=== PATIENT | female | born 1990 ===

== ENCOUNTER 2020-04-27 22:23 | Emergency (ER) | payer OTHER ==
[~2020-04-27] VITALS: Ht 165.1 cm; Wt 77.0 kg
[2020-04-27 22:46] LABS: BASOPHILS # (AUTO) 0.04 x10^3/uL (0-0.1); BASOPHILS % (AUTO) 1 % (0-1); EOSINOPHILS # (AUTO) 0.08 x10^3/uL (0-0.4); EOSINOPHILS % (AUTO) 1 % (1-7); LYMPHOCYTES # (AUTO) 2.81 x10^3/uL (1-3.4); LYMPHOCYTES % (AUTO) 36 % (22-44); MD NO; MEAN CORPUSCULAR HEMOGLOBIN 24.3 pg (27.0-34.8); MEAN CORPUSCULAR VOLUME 75.7 fL (80-100); MEAN PLATELET VOLUME 9.2 fL (7.4-10.4); MONOCYTES # (AUTO) 0.59 x10^3/uL (0.2-0.8); MONOCYTES % (AUTO) 8 % (2-9); NEUTROPHILS # (AUTO) 4.27 x10^3/uL (1.8-6.8); NEUTROPHILS % (AUTO) 55 % (42-75); PLATELET COUNT 364 x10^3/uL (130-400); RED CELL DISTRIBUTION WIDTH 15.9 % (9.6-15.2)
--- NOTE | 2020-04-27 22:46 | NUR ---
PT BIB [facility] on a legal 2000 for SI. pt states she has been feeling increasingly depressed over the past few weeks and now she is having thoughts about suicide. states she doesnt have a specific plan but is thinking about taking pills to OD or crashing her car "or something like that." no hx SA but she has been off of her meds for 1 year. was taking lexapro and another psych drug. pt admit to meth use. last use yesterday. pt tearful and anxious, but cooperative. All belongings in 2 bags, placed in locker. Sitter at hallways for frequesnt checks.
[2020-04-27 22:53] LABS: AMPHETAMINE SCREEN, URINE Positive (Negative); BARBITURATE SCREEN, URINE Negative (Negative); BENZODIAZEPINE SCREEN, URINE Negative (Negative); CANNABINOID SCREEN, URINE Negative (Negative); COCAINE SCREEN, URINE Negative (Negative); METHADONE SCREEN, URINE Negative (Negative); OPIATE SCREEN, URINE Negative (Negative)
[2020-04-27] MEDS ORDERED: LORazepam 0.5MG TABLET ONE (22:55)
[2020-04-27] MEDS ORDERED: ACETAMINOPHEN 325 MG TABLET ONE (22:56)
[2020-04-27 22:58] LABS: ALANINE AMINOTRANSFERASE 20 U/L (12-78); ALBUMIN 3.9 g/dL (3.4-5.0); ANION GAP 6 mmol/L (5-15); CALCIUM 8.9 mg/dL (8.5-10.1); CHLORIDE 106 mmol/L (98-107); CREATININE 0.84 mg/dL (0.55-1.02); SALICYLATE LEVEL 3.2 mg/dL (2.8-20.0)
[2020-04-27] MEDS ORDERED: LORazepam 1MG TABLET PO ONE (23:00)
[2020-04-27] MEDS ORDERED: ACETAMINOPHEN 325 MG TABLET PO ONE (23:00)
[2020-04-27] MEDS: PLEASE ENTER ALLERGIES MC SCH (23:00)
[2020-04-27 23:08] LABS: ALKALINE PHOSPHATASE 62 U/L (45-117); BILIRUBIN,TOTAL 0.3 mg/dL (0.2-1.0); TOTAL PROTEIN 7.9 g/dL (6.4-8.2)
--- NOTE | 2020-04-27 23:17 | NUR ---
PT MEDICATED FOR HEADACHE AND ANXIETY PER EMAR.
[2020-04-27] MEDS ORDERED: LORazepam 0.5MG TABLET PO ONE (23:30)
--- NOTE | 2020-04-28 01:00 | NUR ---
REPORT TO NABILA CORDOVA
--- NOTE | 2020-04-28 02:25 | NUR ---
pt resting in bed, with pt room si secure with sitter at pt door. pt has no needs at this time, greeting card writer will continue to monitor pt.
--- NOTE | 2020-04-28 04:48 | NUR ---
pt resting in bed, with pt room si secure with sitter at pt door. pt has no needs at this time, headline writer will continue to monitor pt.
[2020-04-28] MEDS: PLEASE ENTER ALLERGIES MC SCH (07:18)
--- NOTE | 2020-04-28 07:24 | NUR ---
PT RESTING CALMLY IN BED AT THIS TIME. NO STATED NEEDS. SITTER AT DOOR.
[2020-04-28 07:28] LABS: MICROSCOPIC NOT IND
--- NOTE | 2020-04-28 08:47 | NUR ---
PT GIVEN AM MEAL TRAY. PT STATED SHE FEELS INCREASE ANXIETY THIS AM. WILL SPEAK WITH ERP ABOUT POSSIBLE MEDS. PT CALM, RESTING IN BED. SITTER AT DOOR FOR OBS.
[2020-04-28 08:51] VITALS: BP 119/79
--- NOTE | 2020-04-28 09:03 | NUR ---
PT RESTING CALMLY IN BED. NO STATED NEEDS AT THIS TIME. WILL CONTINUE TO MONITOR.
[2020-04-28] MEDS ORDERED: ACETAMINOPHEN 500 MG TABLET PO ONE (09:30)
[2020-04-28] MEDS ORDERED: ACETAMINOPHEN 500 MG TABLET ONE (09:53)
--- NOTE | 2020-04-28 10:10 | NUR ---
pt resting in bed with eyes closed. attempted to give pt meds for SHARP and anxiety, pt resting calmly in bed with eyes closed, did not arouse to verbal name call, resp evena dn non labored will continue to monitor. sitter at door.
--- NOTE | 2020-04-28 11:25 | NUR ---
PSYCH CONTROL SYSTEMS DEVELOPER SPEAKING WITH PT AT THIS TIME. SITTER AT DOOR. WILL CONTINUE TO MONITOR.
[2020-04-28] MEDS ORDERED: BUPROPION 75 MG TABLET PO ONE (12:00)
[2020-04-28] MEDS ORDERED: ESCITALOPRAM 10MG TABLET PO ONE (12:00)
== END 2020-04-28 12:56 | disposition home or self-care (01) ==
LOC: ED 04-28 00:33
DX: F32.9 Major depressive disorder, single episode, unspecified (principal)
CPT/HCPCS: 36415; 80053; 80307; 81003; 81025; 84443; 85025; 99284